=== PATIENT | male | born 1960 | race Caucasian/White ===

== ENCOUNTER 2018-05-13 02:51 | Emergency (ER) | payer OTHER ==
[~2018-05-13] VITALS: Ht 177.8 cm; Wt 85.0 kg
[2018-05-13 02:55] VITALS: BP 159/117
[2018-05-13] MEDS ORDERED: diazepam 5mg tablet PO ONE ×2 (03:00→03:25)
[2018-05-13] MEDS ORDERED: morphine 4 MG/ML inj SYRINge IV ONE (03:00)
[2018-05-13] MEDS ORDERED: DIAZ5TAB PO (03:54)
[2018-05-13] MEDS ORDERED: HYDR-565 PO (03:54)
== END 2018-05-13 04:41 | disposition home or self-care (01) ==
LOC: ER 02:51
DX: M62.838 Other muscle spasm (principal); M54.2 Cervicalgia; I25.10 Atherosclerotic heart disease of native coronary artery without angina pectoris; I25.2 Old myocardial infarction; E11.9 Type 2 diabetes mellitus without complications
CPT/HCPCS: 93005; 96374; 99284; J2270

== ENCOUNTER 2018-08-08 12:44 | Emergency (ER) | payer OTHER ==
[~2018-08-08] VITALS: Ht 177.8 cm; Wt 84.4 kg
[~2018-08-08 12:44] MED LIST: DIAZ5TAB PO
[2018-08-08] MEDS ORDERED: aspirin 81mg tab.chew PO ONE (16:15)
[2018-08-08 16:37] LABS: BASOPHILS % (AUTO) 0.4 % (0-1); EOSINOPHILS # (AUTO) 0.2 X10'3 (0-0.9); EOSINOPHILS % (AUTO) 2.9 % (0-6); HEMATOCRIT 42.1 % (42.0-52.0); HEMOGLOBIN 14.4 g/dl (14.0-17.9); LYMPHOCYTES # (AUTO) 1.3 X10'3 (1.1-4.8); LYMPHOCYTES % (AUTO) 22.9 % (21-51); MEAN CORPUSCULAR HEMOGLOBIN 29.3 PG (27.0-31.0); MEAN CORPUSCULAR HGB CONC 34.2 % (33.0-36.5); MEAN CORPUSCULAR VOLUME 85.7 FL (78-98); MEAN PLATELET VOLUME 8.6 FL (7.4-10.4); MONOCYTES # (AUTO) 0.4 X10'3 (0-0.9); MONOCYTES % (AUTO) 7.6 % (2-12); NEUTROPHILS % (AUTO) 66.2 % (42-75); PLATELET COUNT 298 X10'3 (140-440); RED BLOOD COUNT 4.91 X10'6 (4.70-6.10); RED CELL DISTRIBUTION WIDTH 11.7 % (11.5-14.5); WHITE BLOOD COUNT 5.9 X10'3 (4.5-11.0)
[2018-08-08 16:48] LABS: ALANINE AMINOTRANSFERASE 30 U/L (12-78); ALBUMIN 3.6 G/DL (3.4-5.0); ALKALINE PHOSPHATASE 141 IU/L (46-116); ANION GAP 8 (8-16); ASPARTATE AMINO TRANSFERASE 13 U/L (10-37); BILIRUBIN,TOTAL 0.3 MG/DL (0.1-1.0); BLOOD UREA NITROGEN 13 MG/DL (7-18); BUN/CREATININE RATIO 18.1 (5.4-32.0); CALCIUM 8.6 MG/DL (8.5-10.1); CHLORIDE 100 MMOL/L (99-107); CREATININE 0.72 MG/DL (0.60-1.10); GLUCOSE 275 MG/DL (70-104); POTASSIUM 4.1 MMOL/L (3.5-5.1); SODIUM 139 MMOL/L (135-145); TOTAL CARBON DIOXIDE 30.8 MMOL/L (24-32); TOTAL PROTEIN 7.3 G/DL (6.4-8.2); eGFR > 90 ML/MIN
[2018-08-08 16:54] LABS: MAGNESIUM 1.9 MG/DL (1.5-2.4)
[2018-08-08 17:30] LABS: PARTIAL THROMBOPLASTIN TIME 27 SECONDS (22-32); PROTHROMBIN TIME 10.1 SECONDS (9.0-12.0)
[2018-08-08] MEDS ORDERED: normal saline 1000ML IV soln IVB ONE (17:50)
[2018-08-08] MEDS ORDERED: iohexol 350MG/ML 100ml bottle IV ONE (17:51)
[2018-08-08] MEDS ORDERED: MESSAGE TO NURSING PO SCH (18:19)
[2018-08-08] MEDS ORDERED: HYDR-4353 PO (18:49)
[2018-08-08] MEDS ORDERED: CYCL-1 PO (18:49)
[2018-08-08] MEDS ORDERED: HYDROcodone/acetaminophen 10/325mg tab PO ONE (18:50)
[2018-08-08] MEDS ORDERED: cyclobenzaprine 10mg tablet PO ONE (18:50)
[2018-08-08 19:29] VITALS: BP 151/94
== END 2018-08-08 19:42 | disposition home or self-care (01) ==
LOC: ER 12:44
DX: R07.89 Other chest pain (principal); R06.00 Dyspnea, unspecified; I25.10 Atherosclerotic heart disease of native coronary artery without angina pectoris; I25.2 Old myocardial infarction; E11.9 Type 2 diabetes mellitus without complications; Z79.899 Other long term (current) drug therapy
CPT/HCPCS: 36415; 71045; 71275; 80053; 83735; 83880; 84484; 85025; 85379; 85610; 85730; 93005; 99285; Q9967

== ENCOUNTER 2020-04-10 06:11 | Emergency (ER) | payer OTHER ==
[~2020-04-10] VITALS: Ht 177.8 cm; Wt 84.1 kg
[~2020-04-10 06:11] MED LIST changes: +ASPI-611 PO; +ATOR10TA70 PO; -DIAZ5TAB PO; +FENO145T25 PO; +INSU100V30 SQ; +LANTUS SQ; +LISI-604 PO; +METF1000 PO; +METO25TA6 PO; +TICA90TA PO
[2020-04-10] MEDS ORDERED: aspirin 81mg tab.chew PO ONE (06:20)
[2020-04-10 06:27] LABS: BASOPHILS % (AUTO) 0.7 % (0-1); EOSINOPHILS # (AUTO) 0.2 X10'3 (0-0.9); EOSINOPHILS % (AUTO) 2.5 % (0-6); HEMATOCRIT 39.7 % (42.0-52.0); HEMOGLOBIN 13.1 g/dl (14.0-17.9); LYMPHOCYTES # (AUTO) 1.8 X10'3 (1.1-4.8); LYMPHOCYTES % (AUTO) 28.7 % (21-51); MEAN CORPUSCULAR HEMOGLOBIN 28.4 PG (27.0-31.0); MEAN CORPUSCULAR HGB CONC 33.1 g/dL (33.0-36.5); MEAN CORPUSCULAR VOLUME 86.1 FL (78-98); MEAN PLATELET VOLUME 8.5 FL (7.4-10.4); MONOCYTES # (AUTO) 0.7 X10'3 (0-0.9); MONOCYTES % (AUTO) 10.3 % (2-12); NEUTROPHILS # (AUTO) 3.7 X10'3 (1.8-7.7); NEUTROPHILS % (AUTO) 57.8 % (42-75); PLATELET COUNT 292 X10'3 (140-440); RED BLOOD COUNT 4.62 X10'6 (4.70-6.10); WHITE BLOOD COUNT 6.3 X10'3 (4.5-11.0)
[2020-04-10] MEDS ORDERED: ondansetron/PF 4mg/2ml inj IV ONE (06:30)
[2020-04-10] MEDS ORDERED: morphine 4 MG/ML inj SYRINge IV ONE (06:30)
[2020-04-10 06:40] LABS: PARTIAL THROMBOPLASTIN TIME 24 SECONDS (22-32)
[2020-04-10 06:45] LABS: D-DIMER < 0.19 MG/L FEU (0-0.50)
[2020-04-10 06:50] LABS: ALANINE AMINOTRANSFERASE 30 U/L (12-78); ALBUMIN 3.1 G/DL (3.4-5.0); ALBUMIN/GLOBULIN RATIO 0.9 (1.1-1.5); ALKALINE PHOSPHATASE 126 IU/L (46-116); ANION GAP 11 (8-16); ASPARTATE AMINO TRANSFERASE 17 U/L (10-37); BILIRUBIN,TOTAL 0.3 MG/DL (0.1-1.0); BLOOD UREA NITROGEN 27 MG/DL (7-18); BUN/CREATININE RATIO 21.8 (5.4-32.0); CALCIUM 8.7 MG/DL (8.5-10.1); CHLORIDE 98 MMOL/L (99-107); CREATININE 1.24 MG/DL (0.60-1.10); POTASSIUM 4.2 MMOL/L (3.5-5.1); SODIUM 133 MMOL/L (135-145); TOTAL CARBON DIOXIDE 24.3 MMOL/L (24-32); TOTAL PROTEIN 6.4 G/DL (6.4-8.2); eGFR 59 ML/MIN
[2020-04-10 06:53] LABS: GLUCOSE 484 MG/DL (70-104)
[2020-04-10] MEDS ORDERED: insulin regular, human 10 units/0.1 ml syringe IV ONE (06:55)
[2020-04-10] MEDS ORDERED: normal saline 1000ML IV soln IVB ONE (06:55)
[2020-04-10] MEDS ORDERED: insulin regular, human U-100 3ml vial - multi-dose IV ONE (07:30)
[2020-04-10 10:11] VITALS: BP 105/72
== END 2020-04-10 10:20 | disposition home or self-care (01) ==
LOC: ER 06:12
DX: R07.89 Other chest pain (principal); E11.65 Type 2 diabetes mellitus with hyperglycemia; I25.10 Atherosclerotic heart disease of native coronary artery without angina pectoris; I25.2 Old myocardial infarction; F12.90 Cannabis use, unspecified, uncomplicated; Z98.61 Coronary angioplasty status; Z72.89 Other problems related to lifestyle; Z79.82 Long term (current) use of aspirin; Z79.4 Long term (current) use of insulin; Z79.899 Other long term (current) drug therapy
CPT/HCPCS: 36415; 71045; 80053; 82948; 83880; 84484; 85025; 85379; 85610; 85730; 93005; 96361; 96374; 96375; 99285; J1815; J2270; J2405; J7030

== ENCOUNTER 2021-01-21 17:49 | Emergency (ER) | payer OTHER ==
[~2021-01-21] VITALS: Ht 177.8 cm; Wt 77.3 kg
[~2021-01-21 17:49] MED LIST changes: -ATOR10TA70 PO; +ATOR40TA7 PO; +CLOP75TA15 PO; +EMPA25TA PO; -FENO145T25 PO; +FENO145T26 PO; +INSU100V12 SQ; -INSU100V30 SQ; +INSU100V46 SQ; -LANTUS SQ; +LIDO20SO24 MM; -LISI-604 PO; +LISI10TA27 PO; +METF-436 PO; -METF1000 PO; +METO-539 PO; -METO25TA6 PO; +OMEG1CAP21 PO; +PER5325T PO; -TICA90TA PO
--- NOTE | 2021-01-21 20:15 | NUR ---
PT STATES FEELING BETTER AND NOT DIZZY, CONTEMPLATING GOING HOME. PT REFUSING PROTOCOL LAB WORK WELL UNTIL MD ASSESSES HIM
[2021-01-21] MEDS ORDERED: normal saline 1000ML IV soln IVB ONE ×2 (21:00→21:25)
--- NOTE | 2021-01-21 21:30 | NUR ---
VERIFIED WITH KALEE PERALTA TO ADMIN 2 L NS BOLUS. NONADMIN 3RD LITER ON EMAR
[2021-01-21 23:12] VITALS: BP 140/95
== END 2021-01-21 23:15 | disposition home or self-care (01) ==
LOC: ER 17:49
DX: I95.1 Orthostatic hypotension (principal); R55 Syncope and collapse; R42 Dizziness and giddiness; E86.0 Dehydration; I25.10 Atherosclerotic heart disease of native coronary artery without angina pectoris; I25.2 Old myocardial infarction; E11.9 Type 2 diabetes mellitus without complications; F12.90 Cannabis use, unspecified, uncomplicated; Z98.890 Other specified postprocedural states; Z88.8 Allergy status to other drugs, medicaments and biological substances; Z79.82 Long term (current) use of aspirin; Z79.4 Long term (current) use of insulin; Z79.899 Other long term (current) drug therapy
CPT/HCPCS: 82948; 93005; 99284; J7030

== ENCOUNTER 2023-08-20 16:54 | Emergency (ER) | payer OTHER ==
[~2023-08-20] VITALS: Ht 177.8 cm; Wt 77.3 kg
[~2023-08-20 16:54] MED LIST changes: +LIDO15SO3 MM; -LIDO20SO24 MM
--- NOTE | 2023-08-20 17:30 | NUR ---
PT WAS BIBA WITH SPINAL PRECAUTIONS AFTER A FALL. PT A/O X4 IN NAD. PT HAS 18GA PIV L AC THAT FLUSHES W/O PROBLEM
--- NOTE | 2023-08-20 18:23 | NUR ---
PT OFF FLOOR TO CT. URINE SENT TO LAB AFTER [facility], PT TOLERATED WELL.
[2023-08-20 18:24] LABS: BASOPHILS % (AUTO) 0.7 % (0-1); EOSINOPHILS # (AUTO) 0.2 X10'3 (0-0.9); EOSINOPHILS % (AUTO) 3.5 % (0-6); HEMATOCRIT 41.6 % (42.0-52.0); LYMPHOCYTES # (AUTO) 1.4 X10'3 (1.1-4.8); LYMPHOCYTES % (AUTO) 25.5 % (21-51); MEAN CORPUSCULAR HEMOGLOBIN 28.8 PG (27.0-31.0); MEAN CORPUSCULAR HGB CONC 33.6 g/dL (33.0-36.5); MEAN CORPUSCULAR VOLUME 85.5 FL (78-98); MEAN PLATELET VOLUME 8.5 FL (7.4-10.4); MONOCYTES # (AUTO) 0.3 X10'3 (0-0.9); MONOCYTES % (AUTO) 6.2 % (2-12); NEUTROPHILS # (AUTO) 3.6 X10'3 (1.8-7.7); NEUTROPHILS % (AUTO) 64.1 % (42-75); PLATELET COUNT 268 X10'3 (140-440); RED BLOOD COUNT 4.87 X10'6 (4.70-6.10); RED CELL DISTRIBUTION WIDTH 13.3 % (11.5-14.5); WHITE BLOOD COUNT 5.6 X10'3 (4.5-11.0)
[2023-08-20] MEDS ORDERED: normal saline 1000ml 1,000 ML IV ONE (18:35)
[2023-08-20 18:37] LABS: ALANINE AMINOTRANSFERASE 29 U/L (12-78); ALBUMIN 3.1 G/DL (3.4-5.0); ALBUMIN/GLOBULIN RATIO 0.8 (1.1-1.5); ALKALINE PHOSPHATASE 120 IU/L (46-116); ANION GAP 7 (8-16); ASPARTATE AMINO TRANSFERASE 16 U/L (10-37); BILIRUBIN,TOTAL 0.7 MG/DL (0.1-1.0); BLOOD UREA NITROGEN 21 MG/DL (7-18); BUN/CREATININE RATIO 27.3 (10.0-20.0); CALCIUM 8.7 MG/DL (8.5-10.1); CHLORIDE 99 MMOL/L (99-107); CREATININE 0.77 MG/DL (0.60-1.10); GLUCOSE 303 MG/DL (70-104); POTASSIUM 4.5 MMOL/L (3.5-5.1); SODIUM 133 MMOL/L (135-145); TOTAL CARBON DIOXIDE 26.8 MMOL/L (24-32); TOTAL PROTEIN 6.9 G/DL (6.4-8.2); eCRCL 100 ML/MIN; eGFR > 90 ML/MIN
[2023-08-20 18:49] LABS: ETHANOL < 10 MG/DL (<10)
[2023-08-20 19:36] LABS: BILIRUBIN,URINE NEGATIVE (Neg); CLARITY,URINE CLEAR (Clear); COLOR,URINE STRAW (Yellow); GLUCOSE, URINE >=1000 mg/dl (Neg); KETONES,URINE 15 mg/dl (Neg); LEUKOCYTE ESTERASE ,URINE NEGATIVE (Neg); NITRITES, URINE NEGATIVE (Neg); OCCULT BLOOD,URINE NEGATIVE (Neg); PH,URINE 6.5 (4.8-8.0); PROTEIN,URINE NEGATIVE (Neg); UROBILINOGEN,URINE 0.2 E.U/dL (0.2-1.0)
[2023-08-20 19:41] LABS: UA COLLECTION TYPE STRAIGHT CATH
[2023-08-20 19:46] LABS: BACTERIA,URINE NONE SEEN /HPF (Neg); MUCUS STRANDS NONE SEEN /LPF (Neg); RBC,URINE 0-2 /HPF (0-2); SQUAMOUS EPITHELIAL CELL,UR FEW /LPF (FEW); WBC,URINE 0-4 /HPF (0-4)
[2023-08-20 19:58] VITALS: BP 147/98; PULSE 92; RESP 14; TEMP 98; O2SAT 99
[2023-08-20 20:06] LABS: URINE AMPHETAMINE SCREEN POSITIVE (Neg); URINE BARBITUATE SCREEN NEGATIVE (Neg); URINE BENZODIAZEPINES SCREEN NEGATIVE (Neg); URINE CANNABINOID SCREEN NEGATIVE (Neg); URINE COCAINE SCREEN NEGATIVE (Neg); URINE METHADONE SCREEN NEGATIVE (Neg); URINE OPIATE SCREEN NEGATIVE (Neg); URINE PHENCYCLIDINE SCREEN NEGATIVE (Neg)
== END 2023-08-20 20:54 | disposition home or self-care (01) ==
LOC: ER 16:55
DX: S13.4XXA Sprain of ligaments of cervical spine, initial encounter (principal); I11.0 Hypertensive heart disease with heart failure; E11.9 Type 2 diabetes mellitus without complications; F12.10 Cannabis abuse, uncomplicated; Z88.5 Allergy status to narcotic agent; Z79.899 Other long term (current) drug therapy; Z79.1 Long term (current) use of non-steroidal anti-inflammatories (NSAID); Z79.2 Long term (current) use of antibiotics
CPT/HCPCS: 36415; 70450; 71045; 72125; 80053; 80305; 80320; 81001; 82948; 84484; 85025; 93005; 96360; 99285; J7030; C1758

== ENCOUNTER 2023-11-14 15:38 | Emergency (ER) | payer OTHER ==
[~2023-11-14] VITALS: Ht 177.8 cm; Wt 76.0 kg
[2023-11-14] MEDS ORDERED: LidoCAINE 2% Topical Jelly 11mL syringe TOP ONE (16:10)
[2023-11-14 16:13] VITALS: PULSE 98; O2SAT 98
[2023-11-14 17:13] VITALS: BP 86/52; TEMP 97.6
[2023-11-14 17:15] VITALS: RESP 14
== END 2023-11-14 17:21 | disposition home or self-care (01) ==
LOC: ER 15:39
DX: R33.9 Retention of urine, unspecified (principal); E11.9 Type 2 diabetes mellitus without complications; Z88.5 Allergy status to narcotic agent; Z79.82 Long term (current) use of aspirin; Z79.899 Other long term (current) drug therapy; Z79.84 Long term (current) use of oral hypoglycemic drugs
CPT/HCPCS: 51702; 99284; A4314; A4358

== ENCOUNTER 2024-01-29 05:33 | Inpatient (IN) | payer OTHER, MEDICARE ==
[~2024-01-29] VITALS: Ht 177.8 cm; Wt 76.4 kg
[~2024-01-29 05:33] MED LIST changes: +ATOR-411 PO; -ATOR40TA7 PO; -LIDO15SO3 MM; +LIDO15SO9 MM
[2024-01-29 06:22] LABS: BASOPHILS % (AUTO) 0.6 % (0-1); EOSINOPHILS % (AUTO) 0.5 % (0-6); HEMOGLOBIN 13.3 g/dl (14.0-17.9); LYMPHOCYTES # (AUTO) 0.8 X10'3 (1.1-4.8); LYMPHOCYTES % (AUTO) 26.5 % (21-51); MEAN CORPUSCULAR HEMOGLOBIN 28.5 PG (27.0-31.0); MEAN CORPUSCULAR HGB CONC 34.1 g/dL (33.0-36.5); MEAN CORPUSCULAR VOLUME 83.8 FL (78-98); MONOCYTES # (AUTO) 0.5 X10'3 (0-0.9); MONOCYTES % (AUTO) 16.3 % (2-12); NEUTROPHILS # (AUTO) 1.7 X10'3 (1.8-7.7); NEUTROPHILS % (AUTO) 56.1 % (42-75); PLATELET COUNT 182 X10'3 (140-440); RED BLOOD COUNT 4.65 X10'6 (4.70-6.10); RED CELL DISTRIBUTION WIDTH 12.9 % (11.5-14.5)
[2024-01-29 06:46] LABS: ALBUMIN 2.8 G/DL (3.4-5.0); ANION GAP 4 (8-16); BLOOD UREA NITROGEN 12 MG/DL (7-18); BUN/CREATININE RATIO 16.2 (10.0-20.0); CALCIUM 7.7 MG/DL (8.5-10.1); CHLORIDE 96 MMOL/L (99-107); CREATININE 0.74 MG/DL (0.60-1.10); GLUCOSE 232 MG/DL (70-104); POTASSIUM 3.8 MMOL/L (3.5-5.1); PRO BRAIN NATRIURETIC PEPTIDE 429 PG/ML (0-125); SODIUM 131 MMOL/L (135-145); TOTAL CARBON DIOXIDE 30.6 MMOL/L (24-32); eCRCL 103 ML/MIN; eGFR > 90 ML/MIN
[2024-01-29] MEDS: normal saline 1000ML IV soln IVB ONE (07:19)
[2024-01-29] MEDS: ibuprofen 200mg tablet PO ONE (07:19)
[2024-01-29] MEDS: levoFLOXACIN-Levaquin 750MG/D5 150 ML IV ONE (07:19)
[2024-01-29] MEDS: ondansetron/PF 4mg/2ml inj IV ONE (07:19)
[2024-01-29 07:58] LABS: TOTAL CELLS COUNTED 100
[2024-01-29 07:59] LABS: PLATELET ESTIMATE NORMAL
[2024-01-29 08:07] LABS: BILIRUBIN,URINE NEGATIVE (Neg); CLARITY,URINE CLEAR (Clear); COLOR,URINE YELLOW (Yellow); GLUCOSE, URINE >=1000 mg/dl (Neg); KETONES,URINE 15 mg/dl (Neg); LEUKOCYTE ESTERASE ,URINE NEGATIVE (Neg); NITRITES, URINE NEGATIVE (Neg); OCCULT BLOOD,URINE NEGATIVE (Neg); PROTEIN,URINE NEGATIVE (Neg)
[2024-01-29 08:20] LABS: SQUAMOUS EPITHELIAL CELL,UR FEW /LPF (FEW); UA COLLECTION TYPE STRAIGHT CATH
[2024-01-29 08:21] LABS: BACTERIA,URINE NONE SEEN /HPF (Neg); RBC,URINE 0-2 /HPF (0-2); WBC,URINE 0-4 /HPF (0-4)
[2024-01-29] MEDS ORDERED: DEXTROSE 15 GM of carb/4 tabs (each vial/BOTTLE has 4 tablets) PO PRN ×2 (10:50)
[2024-01-29] MEDS ORDERED: glucagon, human recombinant 1mg kit SUBCUT PRN (10:50)
[2024-01-29] MEDS ORDERED: dextrose 50%-water 50ml dispensing syringe IV PRN ×2 (10:50)
[2024-01-29] MEDS ORDERED: diphenhydrAMINE 50 mg/ml inj IV PRN (11:15)
[2024-01-29] MEDS ORDERED: mag hydrox/Alum hydrox/simeth 30ml oral suspension PO PRN (11:15)
[2024-01-29] MEDS ORDERED: ipratropium/albuterol 3ml nebule NEB PRN (11:15)
[2024-01-29] MEDS ORDERED: acetaminophen 650mg rectal suppository RC PRN (11:15)
[2024-01-29] MEDS ORDERED: bisacodyl 10mg suppository rectal RC PRN (11:15)
[2024-01-29] MEDS ORDERED: acetaminophen 325mg tablet PO PRN (11:15)
[2024-01-29] MEDS ORDERED: diphenhydrAMINE 25mg capsule PO PRN (11:15)
[2024-01-29] MEDS ORDERED: magnesium hydroxide 30ml (MOM) UD suspension PO PRN (11:15)
[2024-01-29] MEDS: normal saline 1000ml 1,000 ML IV SCH (11:39)
[2024-01-29 11:49] LABS: HEMOGLOBIN A1C 10.7 % (4.5-6.2)
[2024-01-29 11:51] LABS: APTT 34 SECONDS (22-32); D-DIMER 1.05 MG/L FEU (0-0.50); INR 1.2 INR; PROTHROMBIN TIME 12.3 SECONDS (9.0-12.0)
[2024-01-29] MEDS ORDERED: insulin Lispro (HumaLOG) vial - multi-dose SQ SCH (12:00)
[2024-01-29 12:01] LABS: CREATINE KINASE 114 U/L (39-308); LIPASE 12 U/L (16-77); MAGNESIUM 1.7 MG/DL (1.5-2.4); PHOSPHORUS 2.6 MG/DL (2.3-4.5)
[2024-01-29 12:09] VITALS: PULSE 83; RESP 28; O2SAT 94
[2024-01-29 13:33] LABS: URINE AMPHETAMINE SCREEN POSITIVE (Neg); URINE BARBITUATE SCREEN NEGATIVE (Neg); URINE BENZODIAZEPINES SCREEN NEGATIVE (Neg); URINE CANNABINOID SCREEN NEGATIVE (Neg); URINE COCAINE SCREEN NEGATIVE (Neg); URINE METHADONE SCREEN NEGATIVE (Neg); URINE OPIATE SCREEN NEGATIVE (Neg); URINE PHENCYCLIDINE SCREEN NEGATIVE (Neg)
[2024-01-29] MEDS: insulin Lispro (HumaLOG) vial - multi-dose SQ SCH (13:43)
[2024-01-29 19:05] VITALS: PULSE 86; RESP 16; O2SAT 94
[2024-01-29] MEDS: docusate sod 100mg capsule PO SCH (20:00)
[2024-01-29] MEDS: acetaminophen 325mg tablet PO PRN (20:44)
[2024-01-29] MEDS: heparin, porcine 5000 units/ml vial SQ SCH (20:44)
[2024-01-29] MEDS: ondansetron 4mg rapidly disintigrating tab PO PRN (20:44)
[2024-01-29] MEDS ORDERED: temazepam 15mg capsule PO PRN (21:00)
[2024-01-29] MEDS: insulin glargine (Lantus) pen - multi-dose SQ SCH (21:52)
[2024-01-29 22:00] VITALS: BP 127/81; PULSE 87; RESP 20; RESP 21; TEMP 98.1; O2SAT 96
[2024-01-30] VITALS (9 sets, daily range): BP systolic 112–148; BP diastolic 68–99; PULSE 82–90; RESP 14–20; TEMP 97.3–98.4; O2SAT 92–96
[2024-01-30 07:59] LABS: BASOPHILS % (AUTO) 0.5 % (0-1); EOSINOPHILS # (AUTO) 0.1 X10'3 (0-0.9); EOSINOPHILS % (AUTO) 4.2 % (0-6); HEMATOCRIT 36.6 % (42.0-52.0); HEMOGLOBIN 12.4 g/dl (14.0-17.9); LYMPHOCYTES # (AUTO) 0.8 X10'3 (1.1-4.8); LYMPHOCYTES % (AUTO) 26.3 % (21-51); MEAN CORPUSCULAR HEMOGLOBIN 28.5 PG (27.0-31.0); MEAN CORPUSCULAR HGB CONC 33.8 g/dL (33.0-36.5); MEAN CORPUSCULAR VOLUME 84.3 FL (78-98); MEAN PLATELET VOLUME 8.2 FL (7.4-10.4); MONOCYTES # (AUTO) 0.5 X10'3 (0-0.9); MONOCYTES % (AUTO) 14.8 % (2-12); NEUTROPHILS # (AUTO) 1.7 X10'3 (1.8-7.7); NEUTROPHILS % (AUTO) 54.2 % (42-75); PLATELET COUNT 182 X10'3 (140-440); RED BLOOD COUNT 4.34 X10'6 (4.70-6.10); RED CELL DISTRIBUTION WIDTH 13.3 % (11.5-14.5); WHITE BLOOD COUNT 3.2 X10'3 (4.5-11.0)
[2024-01-30 08:14] LABS: ALANINE AMINOTRANSFERASE 15 U/L (12-78); ALBUMIN 2.3 G/DL (3.4-5.0); ALBUMIN/GLOBULIN RATIO 0.6 (1.1-1.5); ALKALINE PHOSPHATASE 74 IU/L (46-116); ANION GAP 2 (8-16); ASPARTATE AMINO TRANSFERASE 20 U/L (10-37); BILIRUBIN,TOTAL 0.6 MG/DL (0.1-1.0); BLOOD UREA NITROGEN 8 MG/DL (7-18); CALCIUM 7.5 MG/DL (8.5-10.1); CHLORIDE 101 MMOL/L (99-107); GLUCOSE 75 MG/DL (70-104); POTASSIUM 3.5 MMOL/L (3.5-5.1); SODIUM 134 MMOL/L (135-145); TOTAL CARBON DIOXIDE 30.8 MMOL/L (24-32); TOTAL PROTEIN 5.9 G/DL (6.4-8.2); eCRCL 152 ML/MIN; eGFR > 90 ML/MIN
[2024-01-30] MEDS: pantoprazole 40mg Tablet.DR PO SCH (08:18)
[2024-01-30] MEDS: CefTRIAXone/D5W-Rocephin 1gm 50 ML IV SCH (08:19)
[2024-01-30] MEDS: azithromycin/NS 500mg/250ml 250 ML IV SCH (10:26)
[2024-01-30] MEDS: ondansetron/PF 4mg/2ml inj IV PRN (17:04)
[2024-01-30] MEDS ORDERED: LORazepam 1 MG tablet PO PRN (19:45)
[2024-01-30] MEDS: gabapentin 100mg capsule PO SCH (21:36)
[2024-01-31] VITALS (11 sets, daily range): BP systolic 131–154; BP diastolic 76–95; PULSE 76–87; RESP 14–71; TEMP 97.7–98.5; O2SAT 94–98
[2024-01-31] MEDS ORDERED: albuterol 2.5 MG/3 ML nebule NEB PRN (01:05)
[2024-01-31 08:30] LABS: BASOPHILS % (AUTO) 0.5 % (0-1); EOSINOPHILS # (AUTO) 0.1 X10'3 (0-0.9); EOSINOPHILS % (AUTO) 3.2 % (0-6); HEMATOCRIT 33.6 % (42.0-52.0); HEMOGLOBIN 11.6 g/dl (14.0-17.9); LYMPHOCYTES # (AUTO) 0.9 X10'3 (1.1-4.8); LYMPHOCYTES % (AUTO) 27.6 % (21-51); MEAN CORPUSCULAR HEMOGLOBIN 28.8 PG (27.0-31.0); MEAN CORPUSCULAR HGB CONC 34.4 g/dL (33.0-36.5); MEAN CORPUSCULAR VOLUME 83.7 FL (78-98); MEAN PLATELET VOLUME 8.3 FL (7.4-10.4); MONOCYTES # (AUTO) 0.5 X10'3 (0-0.9); MONOCYTES % (AUTO) 13.4 % (2-12); NEUTROPHILS # (AUTO) 1.9 X10'3 (1.8-7.7); NEUTROPHILS % (AUTO) 55.3 % (42-75); PLATELET COUNT 205 X10'3 (140-440); RED BLOOD COUNT 4.02 X10'6 (4.70-6.10); RED CELL DISTRIBUTION WIDTH 12.6 % (11.5-14.5); WHITE BLOOD COUNT 3.4 X10'3 (4.5-11.0)
[2024-01-31] MEDS: guaiFENesin ER 600mg tablet PO SCH (08:38)
[2024-01-31 08:47] LABS: ALANINE AMINOTRANSFERASE 19 U/L (12-78); ALBUMIN 2.2 G/DL (3.4-5.0); ALBUMIN/GLOBULIN RATIO 0.6 (1.1-1.5); ALKALINE PHOSPHATASE 76 IU/L (46-116); ANION GAP 3 (8-16); ASPARTATE AMINO TRANSFERASE 20 U/L (10-37); BILIRUBIN,TOTAL 0.4 MG/DL (0.1-1.0); BLOOD UREA NITROGEN 7 MG/DL (7-18); BUN/CREATININE RATIO 13.5 (10.0-20.0); CALCIUM 7.8 MG/DL (8.5-10.1); CHLORIDE 102 MMOL/L (99-107); CREATININE 0.52 MG/DL (0.60-1.10); GLUCOSE 123 MG/DL (70-104); POTASSIUM 3.2 MMOL/L (3.5-5.1); SODIUM 138 MMOL/L (135-145); TOTAL CARBON DIOXIDE 33.2 MMOL/L (24-32); TOTAL PROTEIN 5.8 G/DL (6.4-8.2); eCRCL 146 ML/MIN; eGFR > 90 ML/MIN
[2024-01-31] MEDS ORDERED: magnesium 2GM in 50ml NS 50 ML IV PRN (09:20)
[2024-01-31] MEDS ORDERED: magnesium 4gm in 100ml NS 100 ML IV PRN (09:20)
[2024-01-31] MEDS ORDERED: magnesium Cl slow-release 64mg tablet PO PRN (09:20)
[2024-01-31] MEDS ORDERED: potassium Cl 40MEQ/1/2NS 520ml 520 ML IV PRN (09:20)
[2024-01-31] MEDS ORDERED: potassium Cl 20 mEq SR tablet PO PRN (09:20)
[2024-01-31] MEDS: potassium Cl 20 mEq SR tablet PO PRN (09:31)
[2024-01-31] MEDS: K and/or MAG REPLACEMENT MC SCH (20:00)
[2024-02-01] VITALS (13 sets, daily range): BP systolic 97–145; BP diastolic 48–95; PULSE 80–88; RESP 14–22; TEMP 97.3–99.6; O2SAT 91–98
[2024-02-01 09:14] LABS: BASOPHILS % (AUTO) 0.6 % (0-1); EOSINOPHILS # (AUTO) 0.1 X10'3 (0-0.9); EOSINOPHILS % (AUTO) 3.8 % (0-6); HEMATOCRIT 35.4 % (42.0-52.0); LYMPHOCYTES % (AUTO) 27.9 % (21-51); MEAN CORPUSCULAR HEMOGLOBIN 28.6 PG (27.0-31.0); MEAN CORPUSCULAR VOLUME 84.1 FL (78-98); MEAN PLATELET VOLUME 8.3 FL (7.4-10.4); MONOCYTES # (AUTO) 0.5 X10'3 (0-0.9); MONOCYTES % (AUTO) 12.8 % (2-12); NEUTROPHILS % (AUTO) 54.9 % (42-75); PLATELET COUNT 230 X10'3 (140-440); RED BLOOD COUNT 4.21 X10'6 (4.70-6.10); RED CELL DISTRIBUTION WIDTH 13.2 % (11.5-14.5); WHITE BLOOD COUNT 3.6 X10'3 (4.5-11.0)
[2024-02-01 09:40] LABS: C-REACTIVE PROTEIN 7.64 MG/DL (0.0-0.5)
[2024-02-01 09:53] LABS: ALANINE AMINOTRANSFERASE 25 U/L (12-78); ALBUMIN 2.3 G/DL (3.4-5.0); ALBUMIN/GLOBULIN RATIO 0.5 (1.1-1.5); ALKALINE PHOSPHATASE 79 IU/L (46-116); ANION GAP 5 (8-16); ASPARTATE AMINO TRANSFERASE 16 U/L (10-37); BILIRUBIN,TOTAL 0.4 MG/DL (0.1-1.0); BLOOD UREA NITROGEN 6 MG/DL (7-18); CALCIUM 8.2 MG/DL (8.5-10.1); CHLORIDE 102 MMOL/L (99-107); GLUCOSE 234 MG/DL (70-104); POTASSIUM 4.3 MMOL/L (3.5-5.1); SODIUM 138 MMOL/L (135-145); TOTAL CARBON DIOXIDE 31.3 MMOL/L (24-32); TOTAL PROTEIN 6.5 G/DL (6.4-8.2); eCRCL 127 ML/MIN; eGFR > 90 ML/MIN
[2024-02-01] MEDS ORDERED: LEVO-65 PO (16:12)
[2024-02-01] MEDS ORDERED: ALBU8HFA INH (16:12)
[2024-02-02 02:00] VITALS: BP 167/94; PULSE 89; RESP 22; TEMP 97.8; O2SAT 91
[2024-02-02] MEDS: lisinopril 10 MG tablet PO ONE (03:13)
[2024-02-02 03:15] VITALS: BP 148/68
[2024-02-02 06:00] VITALS: BP 150/86; PULSE 85; RESP 12; TEMP 98.2; O2SAT 92
[2024-02-02 06:51] LABS: EOSINOPHILS # (AUTO) 0.2 X10'3 (0-0.9); EOSINOPHILS % (AUTO) 4.6 % (0-6); HEMATOCRIT 34.7 % (42.0-52.0); HEMOGLOBIN 11.8 g/dl (14.0-17.9); LYMPHOCYTES # (AUTO) 1.2 X10'3 (1.1-4.8); LYMPHOCYTES % (AUTO) 34.5 % (21-51); MEAN CORPUSCULAR HEMOGLOBIN 28.4 PG (27.0-31.0); MEAN CORPUSCULAR HGB CONC 33.9 g/dL (33.0-36.5); MEAN CORPUSCULAR VOLUME 83.8 FL (78-98); MEAN PLATELET VOLUME 8.3 FL (7.4-10.4); MONOCYTES # (AUTO) 0.4 X10'3 (0-0.9); MONOCYTES % (AUTO) 11.9 % (2-12); NEUTROPHILS # (AUTO) 1.6 X10'3 (1.8-7.7); PLATELET COUNT 272 X10'3 (140-440); RED BLOOD COUNT 4.14 X10'6 (4.70-6.10); WHITE BLOOD COUNT 3.4 X10'3 (4.5-11.0)
[2024-02-02 07:06] LABS: ALANINE AMINOTRANSFERASE 23 U/L (12-78); ALBUMIN 2.3 G/DL (3.4-5.0); ALBUMIN/GLOBULIN RATIO 0.6 (1.1-1.5); ALKALINE PHOSPHATASE 75 IU/L (46-116); ASPARTATE AMINO TRANSFERASE 17 U/L (10-37); BILIRUBIN,TOTAL 0.3 MG/DL (0.1-1.0); BLOOD UREA NITROGEN 9 MG/DL (7-18); BUN/CREATININE RATIO 15.5 (10.0-20.0); CALCIUM 8.5 MG/DL (8.5-10.1); CREATININE 0.58 MG/DL (0.60-1.10); GLUCOSE 217 MG/DL (70-104); TOTAL CARBON DIOXIDE 29.7 MMOL/L (24-32); TOTAL PROTEIN 6.4 G/DL (6.4-8.2); eCRCL 131 ML/MIN; eGFR > 90 ML/MIN
[2024-02-02 07:18] LABS: ANION GAP 6 (8-16); SODIUM 137 MMOL/L (135-145)
[2024-02-02 07:19] LABS: CHLORIDE 101 MMOL/L (99-107); POTASSIUM 4.1 MMOL/L (3.5-5.1)
[2024-02-02] MEDS: gabapentin 300mg capsule PO SCH (07:22)
[2024-02-02 08:00] VITALS: RESP 15; O2SAT 94
[2024-02-02 11:00] VITALS: BP 155/88; PULSE 89; RESP 12; TEMP 97.9; O2SAT 93
== END 2024-02-02 15:32 | disposition home or self-care (01) | DRG 871 ==
LOC: ER 05:33 → ED HOLD 11:16 → EDBEDREQ 20:59 → PCU 3S 22:00
PROVIDERS: ADMIT Family Medicine; ATTEND Family Medicine
DX: A41.9 Sepsis, unspecified organism (principal); I50.33 Acute on chronic diastolic (congestive) heart failure; J96.01 Acute respiratory failure with hypoxia; J18.9 Pneumonia, unspecified organism; E87.1 Hypo-osmolality and hyponatremia; I11.0 Hypertensive heart disease with heart failure; E86.0 Dehydration; E11.65 Type 2 diabetes mellitus with hyperglycemia; I48.91 Unspecified atrial fibrillation; I27.20 Pulmonary hypertension, unspecified; K52.9 Noninfective gastroenteritis and colitis, unspecified; Z20.822 Contact with and (suspected) exposure to COVID-19; F15.129 Other stimulant abuse with intoxication, unspecified; I25.10 Atherosclerotic heart disease of native coronary artery without angina pectoris; R82.4 Acetonuria; E78.00 Pure hypercholesterolemia, unspecified; G89.4 Chronic pain syndrome; Z88.5 Allergy status to narcotic agent; Z79.82 Long term (current) use of aspirin; Z79.4 Long term (current) use of insulin; Z79.84 Long term (current) use of oral hypoglycemic drugs; Z79.899 Other long term (current) drug therapy; I25.2 Old myocardial infarction; Z98.1 Arthrodesis status; Z95.5 Presence of coronary angioplasty implant and graft; Z79.891 Long term (current) use of opiate analgesic
CPT/HCPCS: 36415; 71045; 71250; 74176; 80048; 80053; 80305; 81001; 82550; 82948; 83036; 83605; 83690; 83735; 83880; 84100; 84145; 84443; 84484; 85007; 85025; 85379; 85610; 85651; 85730; 86140; 87040; 87081; 87502; 87503; 87811; 93005; 94760; 96365; 96375; 97116; 97161; 97530; 99285; A4615; C1758; G0378; J0456; J0696; J1644; J1815; J1956; J2405; J7030; J7040